=== PATIENT | female | born 1965 | race Two or more races ===

== ENCOUNTER 2022-09-25 14:47 | Emergency (ER) | payer MEDICAID, OTHER ==
[~2022-09-25] VITALS: Ht 160 cm; Wt 100.0 kg
[2022-09-25 14:56] VITALS: BP 151/65
[2022-09-25] MEDS ORDERED: P20 MT (18:42)
[2022-09-25] MEDS ORDERED: DIPH25CA83 MT (18:42)
== END 2022-09-25 19:49 | disposition home or self-care (01) ==
LOC: ER 14:55
DX: L30.9 Dermatitis, unspecified (principal); R07.9 Chest pain, unspecified; M79.605 Pain in left leg; M79.604 Pain in right leg; I10 Essential (primary) hypertension; E11.9 Type 2 diabetes mellitus without complications
CPT/HCPCS: 99281; 99283

== ENCOUNTER 2023-12-10 14:54 | Emergency (ER) | payer OTHER ==
[~2023-12-10] VITALS: Ht 162.6 cm; Wt 86.0 kg
[~2023-12-10 14:54] MED LIST: DIPH25CA83 MT; P20 MT
[2023-12-10 15:08] VITALS: O2SAT 99
[2023-12-10 18:57] LABS: CLARITY URINE CLEAR (CLEAR); COLOR URINE YELLOW (YELLOW); GLUCOSE URINE NEGATIVE (NEGATIVE); KETONES URINE NEGATIVE (NEGATIVE); LEUKOCYTE ESTERASE URINE NEGATIVE (NEGATIVE); NITRITE URINE NEGATIVE (NEGATIVE); OCCULT BLOOD URINE TRACE (NEGATIVE); PROTEIN URINE NEGATIVE (NEGATIVE); SPECIFIC GRAVITY URINE 1.009 (1.005-1.030)
[2023-12-10] MEDS: IBUPROFEN 600MG TABLET PO ONE (19:08)
[2023-12-10 19:57] LABS: BACTERIA URINE TRACE; RBC URINE 0-2 /hpf (0-2); SQUAMOUS EPITHELIAL CELL URINE FEW /lpf (RARE/1+); WBC URINE NONE SEEN /hpf (0-2)
[2023-12-10 20:57] LABS: BASOPHILS % 0.3 % (0.0-2.0); EOSINOPHILS % 1.5 % (0.0-5.0); HEMATOCRIT. 41.8 % (36.0-48.0); LYMPHOCYTES % 30.5 % (20.0-50.0); MEAN CORPUSCULAR HEMOGLOBIN 30.5 pg (28.0-32.0); MEAN CORPUSCULAR HGB CONC 33.5 g/dL (31.0-37.0); MEAN CORPUSCULAR VOLUME 91.1 fL (81.0-99.0); MEAN PLATELET VOLUME 8.8 fl (7.4-10.4); MONOCYTES % 11.5 % (2.0-8.0); NEUTROPHILS % 56.2 % (40.0-76.0); PLATELET 147 x1000/uL (130-400); RED BLOOD CELL COUNT 4.59 mill/uL (4.2-5.4); RED CELL DISTRIBUTION WIDTH 13.5 % (11.6-14.6); WHITE BLOOD COUNT 5.1 x1000/uL (4.5-11.0)
[2023-12-10 21:09] LABS: ALANINE AMINOTRANSFERASE 32 IU/L (10-49); ALBUMIN 4.7 g/dL (3.2-4.8); ASPARTATE AMINOTRANSFERASE 22 IU/L (<34); BILIRUBIN TOTAL 0.8 mg/dL (0.1-1.0); CALCIUM 9.6 mg/dL (8.7-10.4); CARBON DIOXIDE 27 mEq/L (21-32); CHLORIDE 104 mEq/L (98-107); CREATININE 0.7 mg/dL (0.6-1.0); GLUCOSE 116 mg/dL (70-105); PROTEIN TOTAL 8.3 g/dL (6.0-8.3); SODIUM 138 mEq/L (136-145); UREA NITROGEN BLOOD 9 mg/dL (9-23)
[2023-12-10 21:16] LABS: HCG SCREEN NEGATIVE
[2023-12-10 22:53] VITALS: BP 126/78; PULSE 78; RESP 18; TEMP 98
== END 2023-12-10 22:57 | disposition home or self-care (01) ==
LOC: ER 14:54
DX: N95.0 Postmenopausal bleeding (principal); D26.0 Other benign neoplasm of cervix uteri; E11.9 Type 2 diabetes mellitus without complications; E78.00 Pure hypercholesterolemia, unspecified; Z98.890 Other specified postprocedural states
CPT/HCPCS: 36415; 76830; 76856; 80053; 81003; 81025; 84703; 85025; 86850; 86900; 99284